=== PATIENT | female | born 1995 | race American Indian/Alaskan Native ===

== ENCOUNTER 2016-11-10 12:12 | Emergency (ER) | payer SELFPAY ==
--- NOTE | 2016-11-10 14:06 | Emergency Department Report ---
Entered by JOSE MCKEE, acting as scribe for LATIA FRAGA PA. Chief Complaint: Syncope Stated Complaint: 13WKS PREG/ABD PAIN/LIGHT HEADED Time Seen by Provider: 11/10/16 13:27 - HPI History of Present Illness: Pt that is 13 weeks c/o weakness, dizziness, lightheadedness, poor appetite for 1.5 weeks. Patient reports she almost passed out 2 days ago. Reports associated 8/10 sharp, stabbing abdominal pain. Patient states she is 13 weeks based on her last menstrual period, 09/05/2016. Notes she took home with positive results. Reports nausea and diarrhea. Denies vomiting. Reports vaginal discharge. Denies vaginal bleeding. Denies urinary frequency and urgency, and dysuria - ROS Review of Systems: All system are negative unless stated in HPI above. - Exam Vital Signs: Vital Signs 11/10/16 12:56 Temperature 98.2 F Pulse Rate 77 Respiratory 16 Rate Blood Pressure 134/113 O2 Sat by Pulse 100 Oximetry Physical Exam: General: well nourished, well developed, 21 year old male in no acute distress and nontoxic in appearance Abdomen: Soft, normal bowel sounds in all quadrants and negative CVA tenderness bilaterally. No guarding or rigidity. Pelvic area tenderness present. Protruding abdomen. Lungs: Clear to auscultation bilaterally, no rhonchi, wheezes, or rales. Normal work of breathing. No use of accessory Cardiovascular: S1-S2, regular rate, regular rhythm. No murmurs. MSE screening note: Focused history and physical exam performed. Due to findings the following was ordered: see below ED Medical Decision Making - Medical Decision Making MDM: Patient screened by provider in triage area. Appropriate protocol initiated. Patient to be seen by MD on main ED side. Blood pressure elevated and to be addressed in main ED. ED Disposition for MSE Condition: Stable This documentation as recorded by the scribe,JOSE MCKEE,accurately reflects the service I personally performed and the decisions made by me,LATIA FRAGA PA.
[2016-11-10 14:36] LABS: Basophils % (Auto) 0.3 % (0.0-1.8); Eosinophils % (Auto) 0.9 % (0.0-4.3); Hematocrit 37.9 % (30.3-42.9); Hemoglobin 12.8 gm/dl (10.1-14.3); Mean Corpuscular HGB Conc 34 % (30-34); Mean Corpuscular Hemoglobin 31 pg (28-32); Mean Corpuscular Volume 92 fl (79-97); Platelet Count 206 K/mm3 (140-440); White Blood Count 10.6 K/mm3 (4.5-11.0)
[2016-11-10 14:48] LABS: Alanine Aminotransferase 23 units/L (7-56); Albumin 4.1 g/dL (3.9-5); Albumin/Globulin Ratio 1.2 %; Alkaline Phosphatase 57 units/L (35-129); Anion Gap 18 mmol/L; Bilirubin,Total < 0.20 mg/dL (0.1-1.2); Blood Urea Nitrogen 4 mg/dL (7-17); Carbon Dioxide 23 mmol/L (22-30); Chloride 98.6 mmol/L (98-107); Creatine Kinase MB < 1.0 ng/mL (0.0-4.0); Glucose 101 mg/dL (65-100); Potassium 4.3 mmol/L (3.6-5.0); Sodium 135 mmol/L (137-145); Total Protein 7.5 g/dL (6.3-8.2)
[2016-11-10 14:50] LABS: Creatine Kinase 68 units/L (30-135)
[2016-11-10 15:45] LABS: Bilirubin,Urine NEG (Negative); Blood,Urine NEG (Negative); Ketones,Urine NEG (Negative); Leukocyte Esterase,Urine TR (Negative); Mucus,Urine 1+ /HPF; Nitrite,Urine NEG (Negative); Protein,Urine <15 mg/dL mg/dL (Negative); Urobilinogen,Urine < 2.0 mg/dL (<2.0)
--- NOTE | 2016-11-10 16:49 | Ultrasound Report ---
OB ultrasound: with abdominal pain. Endovaginal and transabdominal imaging demonstrates a uterus measuring 6 x 6.5 x 12.5 cm. There is no intra-uterine gestational sac containing a yolk sac as well as a single fetus measuring 17 mm equivalent to an 8 week one day gestation. There is heart motion 176 beats per minute. No intrauterine complication identified. The right ovary measures 2.4 cm and unremarkable. The left ovary measures 4 cm containing a 2 cm septated cyst. No other adnexal mass and no free fluid noted. Impression: Viable sharma IUP. No complication identified.
[2016-11-10 17:05] VITALS: BP 118/54
--- NOTE | 2016-11-10 17:48 | Emergency Department Report ---
ED General Adult HPI - General Chief complaint: Syncope Stated complaint: 13WKS PREG/ABD PAIN/LIGHT HEADED Time Seen by Provider: 11/10/16 17:10 Source: patient Mode of arrival: Ambulatory Limitations: No Limitations - History of Present Illness Initial comments: 21-year-old female presents to the emergency department complaining of lightheadedness and vaginal spotting. Patient states she is approximately 10 weeks , . She has been having these symptoms intermittently for the past 2 weeks. She denies losing consciousness. She also denies abdominal pain. 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 There are no other complaints. -: Gradual, week(s) (2) Severity scale (0 -10): 0 Consistency: intermittent Improves with: none Worsens with: none Associated Symptoms: denies other symptoms - Related Data Previous Rx's Medication Instructions Recorded Last Taken Type Ibuprofen [Motrin 800 MG tab] 800 mg PO Q8H PRN #21 tablet 03/16/14 Unknown Rx Docusate Sodium [Colace CAP] 100 mg PO BID PRN #30 capsule 12/28/14 Unknown Rx Magnesium Citrate 295 ml PO ONCE #1 solution 12/28/14 Unknown Rx Vit-Fe Fumar-FA [ 1 tab PO QDAY #30 tablet 12/28/14 Unknown Rx Vitamin] Allergies Allergy/AdvReac Type Severity Reaction Status Date / Time No Known Allergies Allergy Unverified 03/16/14 14:21 ED Review of Systems ROS: Stated complaint: 13WKS PREG/ABD PAIN/LIGHT HEADED Other details as noted in HPI Comment: All other systems reviewed and negative Cardiovascular: denies: syncope (lightheadedness) Genitourinary: other (vaginal spotting) ED Past Medical Hx - Past Medical History Previous Medical History?: No - Surgical History Past Surgical History?: No - Family History Family history: no significant - Social History Smoking Status: Never Smoker Substance Use Type: None - Medications Home Medications: Home Medications Medication Instructions Recorded Confirmed Last Taken Type Ibuprofen [Motrin 800 MG tab] 800 mg PO Q8H PRN #21 tablet 03/16/14 Unknown Rx Docusate Sodium [Colace CAP] 100 mg PO BID PRN #30 capsule 12/28/14 Unknown Rx Magnesium Citrate 295 ml PO ONCE #1 solution 12/28/14 Unknown Rx Vit-Fe Fumar-FA [ 1 tab PO QDAY #30 tablet 12/28/14 Unknown Rx Vitamin] ED Physical Exam - General Limitations: No Limitations General appearance: alert, in no apparent distress - Head Head exam: Present: atraumatic, normocephalic - Eye Eye exam: Present: normal appearance, PERRL, EOMI - ENT ENT exam: Present: normal exam, normal orophraynx, mucous membranes moist - Neck Neck exam: Present: normal inspection, full ROM. Absent: tenderness - Respiratory Respiratory exam: Present: normal lung sounds bilaterally. Absent: respiratory distress - Cardiovascular Cardiovascular Exam: Present: regular rate, normal rhythm, normal heart sounds - GI/Abdominal GI/Abdominal exam: Present: soft, normal bowel sounds. Absent: distended, tenderness - Extremities Exam Extremities exam: Present: normal inspection, full ROM. Absent: tenderness - Back Exam Back exam: Present: normal inspection, full ROM. Absent: tenderness - Neurological Exam Neurological exam: Present: alert, oriented X3. Absent: motor sensory deficit - Skin Skin exam: Present: warm, dry, intact ED Course Vital Signs 11/10/16 11/10/16 11/10/16 12:56 16:45 16:51 Temperature 98.2 F Pulse Rate 77 Respiratory 16 Rate Blood Pressure 134/113 118/54 118/54 O2 Sat by Pulse 100 100 98 Oximetry 11/10/16 16:56 Temperature Pulse Rate Respiratory 18 Rate Blood Pressure O2 Sat by Pulse 100 Oximetry ED Medical Decision Making - Lab Data Result diagrams: 11/10/16 14:11 11/10/16 14:11 - EKG Data -: EKG Interpreted by Sd EKG shows normal: sinus rhythm, axis, intervals, QRS complexes, ST-T waves Rate: normal - EKG Data When compared to previous EKG there are: previous EKG unavailable Interpretation: normal EKG - Radiology Data Radiology results: report reviewed Pelvic ultrasound reveals a single, live intrauterine with estimated gestational age of 8 weeks, 1 day. heart rate was measured at 176 bpm. - Medical Decision Making Lab and imaging results reviewed and discussed with the patient. Patient will be discharged home at this time to follow up with her [employer] BRANDY. - Differential Diagnosis dehydration, threatened , ectopic Critical care attestation.: If time is entered above; I have spent that time in minutes in the direct care of this critically ill patient, excluding procedure time. ED Disposition Clinical Impression: Vaginal bleeding before 22 weeks gestation Disposition: DC-01 TO HOME OR SELFCARE Is pt being admited?: No Condition: Stable Instructions: Threatened Miscarriage (ED) Referrals: YOANDY OLSON MD [Staff Physician] - 3-5 Days Forms: Work/School Release Form(ED) Time of Disposition: 17:30
== END 2016-11-10 17:40 | disposition home or self-care (01) ==
LOC: ED 12:12
DX: O20.9 Hemorrhage in early pregnancy, unspecified (principal); Z3A.10 10 weeks gestation of pregnancy
CPT/HCPCS: 36415; 76801; 76817; 80053; 81001; 81025; 82550; 82553; 83690; 84484; 84702; 85025; 87086; 93005; 93010